=== PATIENT | male | born 1955 | race Caucasian/White ===

== ENCOUNTER → 2017-04-05 | Outpatient (CLI) | payer BC ==
[~2017-04-05] MED LIST: NO MEDICATIONS
--- NOTE | ~2017-04-05 | EKG ---
PATIENT: EMMY FAM UNIT #: [id number] Ventricular Rate: 56 BPM Atrial Rate: 56 BPM P-R Interval: 144 ms QRS Duration: 86 ms Q-T Interval: 434 ms QTC Calculation(Bezet): 418 ms P Livingston: 64 degrees Calculated R Livingston: 18 degrees Calculated T Livingston: 41 degrees Diagnosis Line: Sinus bradycardia Diagnosis Line: Otherwise normal ECG Diagnosis Line: No previous ECGs available Diagnosis Line: Confirmed by LIZ ROD MD ([id number]) on Diagnosis Line: 04/05/2017 2:48:09 PM INTERPRETING MD: MARCEL HERNANDES
[2017-04-05 13:31] LABS: HEMATOCRIT 45.5 % (38.0-50.0); HEMOGLOBIN 15.4 gm/dL (13.0-16.0); MEAN CORPUSCULAR HEMOGLOBIN 31.2 PG (28-34); MEAN CORPUSCULAR HGB CONC 33.9 g/dL (30-36); MEAN PLATELET VOLUME 7.9 FL (6.5-11.5); RED BLOOD COUNT 4.94 X10e (3.90-5.60); RED CELL DISTRIBUTION WIDTH 13.4 % (11.0-15.5); WHITE BLOOD COUNT 5.3 X10e3 (4.0-10.5)
[2017-04-05 13:51] LABS: BUN/CREATININE RATIO 13.63; CALCIUM SERUM 9.1 mg/dL (8.4-10.2); CREATININE SERUM 1.1 mg/dL (0.6-1.4); GLOM FILT RATE Estimated 73.1 mL/min (>60); POTASSIUM 4.9 mmol/L (3.5-5.1)
== END | disposition home or self-care (01) ==
LOC: CAMB 12:27
PROVIDERS: Specialist
DX: Z01.818 Encounter for other preprocedural examination (principal); R00.1 Bradycardia, unspecified
CPT/HCPCS: 36415; 80048; 85027; 93005

== ENCOUNTER → 2017-04-11 | Day surgery (SDC) | payer BC ==
--- NOTE | ~2017-04-11 | OR ---
Unit #: [id number] #: [id number] Patient: EMMY FAM [id number] [facility] [address] [place], [place] [address] [id number] MR#: [id number] NAME: EMMY FAM. ROOM: Date of Procedure: 04/11/2017 Admission Date: 04/11/2017 Surgeon: Andrew Valerio M.D. : 1955 Attending Physician: Andrew Valerio M.D. OPERATIVE REPORT PREOPERATIVE DIAGNOSIS Bilateral inguinal hernia. POSTOPERATIVE DIAGNOSES Right indirect inguinal hernia and left direct inguinal hernia. PROCEDURE PERFORMED Bilateral open inguinal hernia repair with mesh. ANESTHESIA General endotracheal anesthesia. ESTIMATED BLOOD LOSS 20 mL. INDICATIONS FOR PROCEDURE A 61-year-old gentleman, who presented to the office with a painful bulge in the right inguinal region. On examination, he had a reducible right inguinal hernia. On examination, he had an incidental left inguinal hernia. DESCRIPTION OF PROCEDURE The patient was admitted to [facility], positively identified, and transported to the operating room, and after induction of general endotracheal anesthesia, his abdominal wall hair was clipped and he was prepped and draped in usual sterile fashion. He received IV antibiotics per SCIP protocol. On the right side, a transverse incision in the skin line was made over the inguinal canal. I dissected down through the soft tissue and exposed the external oblique aponeurosis. The aponeurosis opened in the direction of its fibers to include the external ring. The ilioinguinal nerve was identified and preserved. The cord structures were elevated from the floor of the inguinal canal and from the cord structures. Once it was fully , the hernia sac was opened and the incarcerated contents were reduced and the hernia sac was closed and then held in reduction through the internal ring with a medium PerFix plug. The plug was secured with multiple 0 Ethibond interrupted sutures. The onlay mesh was then placed over the inguinal canal and secured to the pubic tubercle medially and the tails were crossed around the internal ring and secured the musculofascial tissues superior and lateral to the internal ring. Being careful to avoid nerve injury, the limbs were secured to the rectus sheath medially and the shelving edge inguinal ligament laterally. The cord structures then Unit #: [id number] #: [id number] Patient: EMMY FAM placed back in the anatomic position. 0.5% Marcaine with epinephrine was infiltrated in the fascia and soft tissue. The soft tissue was closed with 3-0 Vicryl running suture and the skin was reapproximated with 4-0 Monocryl subcuticular closure. Sponges and needle counts were correct x3. The patient tolerated the procedure well. After completion of the right side, I then went to the left side, a mirror imaged incision was made and again I exposed the external oblique aponeurosis, which was opened in direction of its fibers and then the cord structures were mobilized. The ilioinguinal nerve was again identified and preserved. On this side, there was no indirect hernia sac, but he had a defect in the floor of the inguinal canal consistent with a direct inguinal hernia. The hernia sac was reduced and held in reduction with an 0 Ethibond interrupted sutures between the conjoined tendon and the shelving edge inguinal ligament. A 1 x 4 cm piece of polypropylene mesh was then secured to the pubic tubercle, stretched across the inguinal canal and bivalved, so that they could be wrapped around the internal ring. The tails were secured to the musculofascial tissues superior and lateral to the internal ring. The limbs were secured to the shelving edge of the inguinal ligament and the rectus sheath. The cord was then placed back in the anatomic position. 0.5% Marcaine with epinephrine was infiltrated in the fascia and soft tissue. Soft tissue was closed with 3-0 Vicryl running suture and the skin was reapproximated with 4-0 Monocryl running subcuticular closure. Dermabond was placed over both wounds. Sponges and needle counts were correct x3. The patient tolerated the procedure well and transported to recovery room in stable condition. Dictated by... Kenroy Tsai/you TD: 04/11/2017 17:51 JOB #: [id number] OPERATIVE REPORT Page 1 of 1 X Andrew Valerio MD PROCEDURE OPERATIVE NOTE
== END | disposition home or self-care (01) ==
LOC: CSUR 09:24
DX: K40.30 Unilateral inguinal hernia, with obstruction, without gangrene, not specified as recurrent (principal); K40.90 Unilateral inguinal hernia, without obstruction or gangrene, not specified as recurrent; I10 Essential (primary) hypertension; E78.5 Hyperlipidemia, unspecified
CPT/HCPCS: C1781; J0690; J1170; J1885; J2250; J2405; J3010